=== PATIENT | female | born 1955 | race Caucasian/White ===

== ENCOUNTER → 2024-01-08 | Outpatient (CLI) | payer MEDICARE ==
[~2024-01-08] MED LIST: ASPI325EC PO; ATOR80 PO; CLOP75 PO
[2024-01-08 13:19] LABS: BASOPHILS ABSOLUTE AUTO 0.07 K/mm3 (0.00-0.23); BASOPHILS PERCENT AUTO 1 % (0-2); EOSINOPHILS ABSOLUTE AUTO 0.23 K/mm3 (0.00-0.68); EOSINOPHILS PERCENT AUTO 2 % (0-6); Hematocrit 33.7 % (33.0-51.0); Hemoglobin 11.3 g/dL (11.5-16.0); IMMATURE GRAN ABSOLUTE AUTO 0.04 K/mm3 (0.00-0.10); IMMATURE GRAN PERCENT AUTO 0 % (0-1); LYMPHOCYTES ABSOLUTE AUTO 1.29 K/mm3 (0.84-5.20); LYMPHOCYTES PERCENT AUTO 11 % (21-46); MONOCYTES ABSOLUTE AUTO 0.73 K/mm3 (0.16-1.47); MONOCYTES PERCENT AUTO 6 % (4-13); Mean Corpuscular HGB 27.4 pg (26.0-34.0); Mean Corpuscular HGB Conc 33.5 g/dL (31.5-36.5); Mean Corpuscular Volume 82 fL (80-100); Mean Platelet Volume 10.1 fL (9.1-12.4); NEUTROPHILS ABSOLUTE AUTO 9.35 K/mm3 (1.96-9.15); NEUTROPHILS PERCENT AUTO 80 % (41-73); Platelet Count 440 K/mm3 (150-400); RDW Standard Deviation 38.5 fL (35.1-46.3); Red Blood Cell Count 4.13 M/mm3 (3.80-5.20); White Blood Cell Count 11.71 K/mm3 (4.00-11.30)
[2024-01-08 14:12] LABS: Alanine Aminotransfer (ALT/SGP 18 U/L (12-78); Albumin, Blood 3.6 g/dL (3.4-5.0); Albumin/Globulin Ratio 0.9 (0.8-1.8); Alk Phos 106 U/L (50-136); Anion Gap 11 mmol/L (3-11); Aspartate Aminotrans (AST/SGOT 21 U/L (12-37); Bilirubin, Total 0.6 mg/dL (0.1-1.0); Blood Urea Nitrogen 8 mg/dL (8-24); Bun/Creatinine Ratio 11.9 (12.0-20.0); CHOL/HDL RATIO 2.8; CO2, Blood 26 mmol/L (21-32); Calcium, Blood 9.3 mg/dL (8.5-10.1); Chloride, Blood 91 mmol/L (98-108); Cholesterol 192 mg/dL (50-200); Creatinine, Blood 0.67 mg/dL (0.40-1.00); Globulin, Blood 4.2 g/dL (2.2-4.0); Glomerular Filtration Rate 94 (60-); Glucose, Blood 106 mg/dL (70-99); HDL Cholesterol 69 mg/dL (>39); LDL/HDL RATIO 1.5; Low Density Lipoprotein Chol 107 mg/dL (0-110); Potassium, Blood 4.9 mmol/L (3.5-5.5); Sodium, Blood 123 mmol/L (136-145); Total Protein, Blood 7.8 g/dL (6.4-8.2); Triglycerides 81 mg/dL (30-160); Very Low Density Lipoprot Chol 16 mg/dL (6-32)
== END ==
LOC: LAB SHORT 11:42 → LAB 11:42
PROVIDERS: Physician Assistant
DX: Z79.899 Other long term (current) drug therapy (principal)
CPT/HCPCS: 80053; 80061; 82306; 83036; 84443; 85025

== ENCOUNTER → 2024-04-02 | Outpatient (CLI) | payer MEDICARE ==
[2024-04-02 12:58] LABS: Bun/Creatinine Ratio 13.2 (12.0-20.0); Calcium, Blood 9.5 mg/dL (8.5-10.1); Creatinine, Blood 0.99 mg/dL (0.40-1.00); Potassium, Blood 4.7 mmol/L (3.5-5.5)
== END ==
LOC: LAB SHORT 10:40 → LAB 10:40
PROVIDERS: Physician Assistant
DX: E87.1 Hypo-osmolality and hyponatremia (principal)
CPT/HCPCS: 80048

== ENCOUNTER 2025-02-16 12:00 | Inpatient (IN) | payer MEDICARE, OTHER ==
[~2025-02-16] VITALS: Ht 167.6 cm; Wt 74.1 kg
[2025-02-16 12:52] LABS: BASOPHILS ABSOLUTE AUTO 0.08 K/mm3 (0.00-0.23); BASOPHILS PERCENT AUTO 0 % (0-2); EOSINOPHILS ABSOLUTE AUTO 0.65 K/mm3 (0.00-0.68); EOSINOPHILS PERCENT AUTO 4 % (0-6); Hematocrit 29.5 % (33.0-51.0); Hemoglobin 9.9 g/dL (11.5-16.0); IMMATURE GRAN ABSOLUTE AUTO 0.08 K/mm3 (0.00-0.10); IMMATURE GRAN PERCENT AUTO 0 % (0-1); LYMPHOCYTES ABSOLUTE AUTO 1.10 K/mm3 (0.84-5.20); LYMPHOCYTES PERCENT AUTO 6 % (21-46); MONOCYTES ABSOLUTE AUTO 0.88 K/mm3 (0.16-1.47); MONOCYTES PERCENT AUTO 5 % (4-13); Mean Corpuscular HGB Conc 33.6 g/dL (31.5-36.5); Mean Corpuscular Volume 78 fL (80-100); NEUTROPHILS ABSOLUTE AUTO 15.33 K/mm3 (1.96-9.15); NEUTROPHILS PERCENT AUTO 85 % (41-73); NRBC ABSOLUTE 0.00 K/mm3 (0.00-0.02); NRBC Auto 0.0 /100 WBC (0.0-0.2); Platelet Count 515 K/mm3 (150-400); RDW Coefficient Variation 15.4 % (11.7-14.2); RDW Standard Deviation 43.8 fL (35.1-46.3)
[2025-02-16 13:12] LABS: Alanine Aminotransfer (ALT/SGP 14.0 U/L (12-78); Albumin, Blood 2.8 g/dL (3.4-5.0); Albumin/Globulin Ratio 0.7 (0.8-1.8); Anion Gap 11.0 mmol/L (3-11); Aspartate Aminotrans (AST/SGOT 27.0 U/L (12-37); Bilirubin, Total 0.4 mg/dL (0.1-1.0); Blood Urea Nitrogen 10.0 mg/dL (8-24); CO2, Blood 24.0 mmol/L (21-32); Calcium, Blood 8.4 mg/dL (8.5-10.1); Chloride, Blood 92.0 mmol/L (98-108); Creatinine, Blood 0.73 mg/dL (0.40-1.00); Globulin, Blood 4.2 g/dL (2.2-4.0); Glucose, Blood 105.0 mg/dL (70-99); Potassium, Blood 4.6 mmol/L (3.5-5.5); Sodium, Blood 122.0 mmol/L (136-145); Total Protein, Blood 7.0 g/dL (6.4-8.2)
[2025-02-16 15:29] LABS: Source, Urine Clean Catch
[2025-02-16 15:33] LABS: Bilirubin, Urine Neg (Neg); Glucose Qualitative, Urine Neg (Neg); Ketones, Urine Neg (Neg); Leukocyte Esterase, Urine 3+ (Neg); Protein, Urine 2+ (Neg); Specific Gravity, Urine 1.010 (1.003-1.022); Urobilinogen, Urine NORM (Normal)
[2025-02-16 15:39] LABS: Color, Urine Pale Yellow (P-Yellow)
[2025-02-16 15:41] LABS: White Blood Cells, Urine 25-50 /hpf (0-5)
[2025-02-16] MEDS ORDERED: CEPH500 PO (15:53)
[2025-02-16] MEDS ORDERED: CefTRIAXone Sodium 1,000 MG in NS 100 ML IV ONE (16:10)
[2025-02-16] MEDS ORDERED: NS 500 ML IV SCH (17:10)
[2025-02-16] MEDS ORDERED: Albuterol 2.5 MG/3 ML VIAL INH PRN (18:05)
[2025-02-16] MEDS ORDERED: NS 1,000 ML IV SCH (18:30)
[2025-02-16 19:14] LABS: Ferritin, Serum 315.0 ng/mL (8-252); Total Iron Binding Capacity 245.0 ug/dL (250-450)
[2025-02-16] MEDS ORDERED: Lactobacil 2-S.Thermo-Bifido 1 1 Cap PO SCH (21:00)
[2025-02-16 22:37] LABS: Anion Gap 10.0 mmol/L (3-11); Blood Urea Nitrogen 7.0 mg/dL (8-24); CO2, Blood 24.0 mmol/L (21-32); Calcium, Blood 8.2 mg/dL (8.5-10.1); Chloride, Blood 95.0 mmol/L (98-108); Creatinine, Blood 0.66 mg/dL (0.40-1.00); Glucose, Blood 98.0 mg/dL (70-99); Potassium, Blood 4.2 mmol/L (3.5-5.5); Sodium, Blood 125.0 mmol/L (136-145)
[2025-02-17 03:37] VITALS: BP 97/67
--- NOTE | 2025-02-17 05:01 | NUR ---
SHIFT SUMMARY - PT ARRIVES TO UNIT AT 1025, REPORT RECEIVED FROM ALONDRA BALES IN ER. PT IS A/OX4. VERBALIZES NEEDS, COOPERATIVE WITH CARE. HX OF CVA APPROX 10 YEARS AGO. PT DISPLAYS RIGHT SIDED DEFICITS WITH UNILATERAL WEAKNESS, RIGHT SIDED FACIAL DROOP, AND CONTRACTED RIGHT HAND. SHE DENIES PAIN AT THIS TIME, BUT DOES EXHIBIT GRIMACING WHEN TURNING ONTO HER RIGHT SIDE. PERRLA. FOLLOWS COMMANDS. RESPONDS APPROPRIATELY, BUT DISPLAYS EXPRESSIVE APHASIA. SHE IS ABLE TO RESPOND APPROPRIATELY WITH MUCH EFFORT. ON CONTINUOUS CARDIAC TELEMETRY, IN A SINUS RHYTHM, VSS. ON RA, SATS ABOVE 90%. LUNG SOUNDS COARSE WITH EXPIRATORY WHEEZES. BREATHING IN SHALLOW AND UNLABORED. PT STATES SHE COMMONLY USES A WALKER AND WHEELCHAIR AT [place]. SHE REQUIRES ASSISTANCE WITH MANY ADL S, SUCH DRESSING AND BATHING. SHE IS ABLE TO EAT MEALS INDEPENDENTLY. HER RIGHT SIDE HAS BECOME INCREASINGLY MORE WEAK THAN BASELINE IN THE LAST SEVERAL DAYS. HER IS HER PRIMARY CAREGIVER. GARCIA CATHETER PLACED IN ER FOR RETENTION. URINE IS PALE YELLOW AND DRAINING TO GRAVITY. PT HAS STAGE ONE PRESSURE INJURY ON BUTTOCKS. PHOTOS IN CHART AND MD AWARE. CODE STATUS CHANGED TO DNR THIS SHIFT AFTER CONVERSATION WITH MD PER PT WISHES.
[2025-02-17 05:21] LABS: Hematocrit 30.0 % (33.0-51.0); Hemoglobin 10.0 g/dL (11.5-16.0); Mean Corpuscular HGB Conc 33.3 g/dL (31.5-36.5); Mean Corpuscular Volume 78 fL (80-100); NRBC ABSOLUTE 0.00 K/mm3 (0.00-0.02); NRBC Auto 0.0 /100 WBC (0.0-0.2); Platelet Count 486 K/mm3 (150-400); RDW Coefficient Variation 15.5 % (11.7-14.2); RDW Standard Deviation 43.9 fL (35.1-46.3)
[2025-02-17 05:45] LABS: Anion Gap 10.0 mmol/L (3-11); Blood Urea Nitrogen 7.0 mg/dL (8-24); CO2, Blood 25.0 mmol/L (21-32); Calcium, Blood 7.9 mg/dL (8.5-10.1); Chloride, Blood 94.0 mmol/L (98-108); Creatinine, Blood 0.62 mg/dL (0.40-1.00); Glucose, Blood 95.0 mg/dL (70-99); Magnesium, Blood 1.7 mg/dL (1.6-2.4); Potassium, Blood 3.7 mmol/L (3.5-5.5); Sodium, Blood 125.0 mmol/L (136-145)
[2025-02-17 07:19] VITALS: BP 121/72
--- NOTE | 2025-02-17 08:51 | NUR ---
am note this rn assumed care at 0700. vital signs stable. tele sinus rhythm/ sinus tach with a avb 80-110s. patient heart rate increases into the 100s with activity. patient is alert and oriented x3. patient has history of cva with right sided deficits. patient has a right facial droop and right side is weaker than left. patient has expressive aphasia. patient is caregiver. patient deneis pain, chest pain/pressure or shortness of breath. patient has reddness to bottom that is not blanchable and pictures in the chart. repositioning every two hours. patient has a crews catheter in place for retention and is draining with gravity, clear yellow urine. see shift assesment for further detials. plan is to complete home med rec with and mri form when arrives today. patient agrees with this plan. jn with care management in to see the patient this morning
[2025-02-17] MEDS ORDERED: Enoxaparin 40 MG/0.4 ML SYR SC SCH (09:00)
[2025-02-17] MEDS ORDERED: ASPI81CH PO (09:37)
[2025-02-17] MEDS ORDERED: LOSA50 PO (09:38)
[2025-02-17] MEDS ORDERED: AMLO10 PO (09:39)
[2025-02-17 11:17] VITALS: BP 135/70
--- NOTE | 2025-02-17 12:24 | NUR ---
update patient has worked with physical therapy, occupational therapy and speech therapy today. see their assessment for further detials
[2025-02-17] MEDS ORDERED: CefTRIAXone Sodium 1,000 MG in NS 100 ML IV SCH (16:00)
--- NOTE | 2025-02-17 16:03 | NUR ---
CASE CONFRENCE- DISCUSSED CASE WITH CARE ATTENDANT AND ALLOCATIONS CLERK. PATIENT HAS EXPRESSIVE APHASIA AND IS PENDING AN MRI. WILL CONTINUE TO FOLLOW
[2025-02-17] MEDS ORDERED: Polyethylene Glycol 3350 17 gm PO PRN (16:10)
[2025-02-17] MEDS ORDERED: Docusate Sodium/Senna 1 Tab PO PRN (16:10)
--- NOTE | 2025-02-17 16:10 | NUR ---
shift summary vitals remain stable. no acute changes. see previous notes.
--- NOTE | 2025-02-17 16:45 | NUR ---
ASSUMPTION NOTE: THIS RN TO ASSUME CARE OF PATIENT. PATIENT RESTING IN BED ASKING TO GET ON BED [place]. VITAL SIGNS STAKEN & PATIENT STABLE. PATIENT IS ALERT AND ORIENTED X4 HAS EXPRESSIVE APHASIA BUT IS ABLE TO MAKE NEEDS KNOWN WITH SIMPLE QUESTIONS. PATIENT HAS CALL LIGHT WITHIN REACH & BED IN LOWEST POSITION STATING NOTHING ELSE IS NEEDED AT THIS TIME.
[2025-02-17 16:46] VITALS: BP 127/67
--- NOTE | 2025-02-17 18:06 | NUR ---
SHIFT SUMMARY: PATIENT IS ALERT AND ORIENTED X4 & COOPERATIVE WITH HER CARE. HAS EXPRESSIVE APHASIA BUT IS ABLE TO MAKE NEEDS KNOWN. ON TELE SHOWING SINUS WITH RATE IN 80-90'S. PATIENT SATTING >92% ON ROOM AIR. PATIENT WORKED WITH PHYSICAL THERAPY AND OCCUPATIONAL THERAPY TODAY, SHE IS A LIFT PATIENT TO GET OUT OF BED DUE TO WEAKNESS & 2 PERSON TO SIT AT EDGE OF BED. PATIENT HAS HISTORY OF CVA WITH RIGHT SIDED WEAKNESS AND FACIAL DROOP. PATIENT IS ABLE TO MOVE ALL EXTREMITIES BUT VERY WEAK. GOT MRI AND HEAD CTA WITH RESULTS IN THE CHART. TO BEDSIDE TODAY AND MED REC WAS DONE. PATIENT WORKED WITH SPEECH TODAY AND MEDICATIONS ONE AT A TIME WHOLE WITH WATER AND SOFT & BITE SIZED DIET. PATIENT HAS CALL LIGHT WITHIN REACH, BED IN LOWEST POSITION & STATING NOTHING ELSE IS NEEDED AT THIS TIME.
[2025-02-17 20:26] VITALS: BP 137/99
[2025-02-18] VITALS (7 sets, daily range): BP systolic 98–127; BP diastolic 65–90
[2025-02-18 04:22] LABS: BASOPHILS ABSOLUTE AUTO 0.08 K/mm3 (0.00-0.23); BASOPHILS PERCENT AUTO 0 % (0-2); EOSINOPHILS ABSOLUTE AUTO 0.15 K/mm3 (0.00-0.68); EOSINOPHILS PERCENT AUTO 1 % (0-6); Hematocrit 31.7 % (33.0-51.0); Hemoglobin 10.4 g/dL (11.5-16.0); IMMATURE GRAN ABSOLUTE AUTO 0.13 K/mm3 (0.00-0.10); IMMATURE GRAN PERCENT AUTO 1 % (0-1); LYMPHOCYTES ABSOLUTE AUTO 0.88 K/mm3 (0.84-5.20); LYMPHOCYTES PERCENT AUTO 5 % (21-46); MONOCYTES ABSOLUTE AUTO 1.15 K/mm3 (0.16-1.47); MONOCYTES PERCENT AUTO 6 % (4-13); Mean Corpuscular HGB Conc 32.8 g/dL (31.5-36.5); Mean Corpuscular Volume 79 fL (80-100); NEUTROPHILS ABSOLUTE AUTO 17.17 K/mm3 (1.96-9.15); NEUTROPHILS PERCENT AUTO 88 % (41-73); NRBC ABSOLUTE 0.00 K/mm3 (0.00-0.02); NRBC Auto 0.0 /100 WBC (0.0-0.2); Platelet Count 493 K/mm3 (150-400); RDW Coefficient Variation 15.5 % (11.7-14.2); RDW Standard Deviation 44.1 fL (35.1-46.3)
[2025-02-18 04:41] LABS: Anion Gap 10.0 mmol/L (3-11); Blood Urea Nitrogen 6.0 mg/dL (8-24); CO2, Blood 25.0 mmol/L (21-32); Calcium, Blood 8.4 mg/dL (8.5-10.1); Chloride, Blood 92.0 mmol/L (98-108); Creatinine, Blood 0.58 mg/dL (0.40-1.00); Glucose, Blood 99.0 mg/dL (70-99); Potassium, Blood 3.7 mmol/L (3.5-5.5); Sodium, Blood 123.0 mmol/L (136-145)
--- NOTE | 2025-02-18 16:59 | NUR ---
shift summary PT A&OX3, ABLE TO MAKE NEEDS KNOWN, SLOW TO RESPOND. R SIDE WEAKNESS. SP02>90% ON RA. TELEMTRY SHOWS SINUS, HR MOSTLY 80'S. ELEVATED THIS AM, STARTED METOPROLOL PER HOME REGIMEN. DENIES PAIN. GARCIA CATHETER WITH YELLOW URINE TO GRAVITY. C/O OF CONSTIPATION. ABLE TO HAVE A SMEAR IN BEDPAN THIS AM. BOWEL CARE GIVEN PER EMAR. Q2H REPOSITIONING. WORKED W/ PT. VISITED THIS AFTERNOON. NEW IV IN L FOREARM. ABX INFUSED PER EMAR. FLUIDS INFUSING PER EMAR. CALL LIGHT IN REACH.
[2025-02-19] VITALS (7 sets, daily range): BP systolic 79–139; BP diastolic 59–696
[2025-02-19 04:02] LABS: BASOPHILS ABSOLUTE AUTO 0.09 K/mm3 (0.00-0.23); BASOPHILS PERCENT AUTO 1 % (0-2); EOSINOPHILS ABSOLUTE AUTO 0.51 K/mm3 (0.00-0.68); EOSINOPHILS PERCENT AUTO 3 % (0-6); Hematocrit 28.7 % (33.0-51.0); Hemoglobin 9.6 g/dL (11.5-16.0); IMMATURE GRAN ABSOLUTE AUTO 0.05 K/mm3 (0.00-0.10); IMMATURE GRAN PERCENT AUTO 0 % (0-1); LYMPHOCYTES ABSOLUTE AUTO 1.12 K/mm3 (0.84-5.20); LYMPHOCYTES PERCENT AUTO 6 % (21-46); MONOCYTES ABSOLUTE AUTO 1.15 K/mm3 (0.16-1.47); MONOCYTES PERCENT AUTO 7 % (4-13); Mean Corpuscular HGB Conc 33.4 g/dL (31.5-36.5); Mean Corpuscular Volume 78 fL (80-100); NEUTROPHILS ABSOLUTE AUTO 14.46 K/mm3 (1.96-9.15); NEUTROPHILS PERCENT AUTO 83 % (41-73); NRBC ABSOLUTE 0.00 K/mm3 (0.00-0.02); NRBC Auto 0.0 /100 WBC (0.0-0.2); Platelet Count 488 K/mm3 (150-400); RDW Coefficient Variation 15.5 % (11.7-14.2); RDW Standard Deviation 44.2 fL (35.1-46.3)
[2025-02-19 04:25] LABS: Anion Gap 8.0 mmol/L (3-11); Blood Urea Nitrogen 6.0 mg/dL (8-24); CO2, Blood 26.0 mmol/L (21-32); Calcium, Blood 8.4 mg/dL (8.5-10.1); Chloride, Blood 95.0 mmol/L (98-108); Creatinine, Blood 0.61 mg/dL (0.40-1.00); Glucose, Blood 87.0 mg/dL (70-99); Potassium, Blood 3.4 mmol/L (3.5-5.5); Sodium, Blood 126.0 mmol/L (136-145)
--- NOTE | 2025-02-19 06:24 | NUR ---
SHIFT SUMMARY PATIENT ALERT AND ORIENTED X4. HAD NO COMPLAINTS OF PAIN OR SHORTNESS OF BREATH. ON ROOM AIR WITH SP02 >90%. VITAL SIGNS STABLE. NO NEURO CHANGES NOTED. WILL CONTINUE TO MONITOR. CALL LIGHT WITHIN REACH.
[2025-02-19] MEDS ORDERED: NS 1,000 ML IV ONE (09:45)
[2025-02-19] MEDS ORDERED: Potassium Chloride 10 Meq Tablet SA PO ONE (11:45)
--- NOTE | 2025-02-19 17:18 | NUR ---
shift summary PT A&OX3, ABLE TO MAKE NEEDS KNOWN, SLOW TO RESPOND. NO NEURO CHANGES NOTED. SP02>90% ON RA. TELEMETRY SHOWS NSR, HR MOSTLY 90'S. BP SOFT THIS SHIFT. MD VIZCARRA W/ ORDERS FOR 1L NS BOLUS. BP RESPONDED WELL, SEE VITALS. GARCIA CATHETER DRAINING YELLOW URINE TO GRAVITY. ABLE TO HAVE BM THIS SHIFT. DENIES PAIN. REPOSITIONED Q2H. BLOOD CULTURES DRAWN. NEW IV PLACED IN R FOREARM. PT UP IN RECLINER MOST OF SHIFT. CURRENTLY SITTING UP IN BED EATING DINNER. CALL LIGHT IN REACH.
[2025-02-20] VITALS (8 sets, daily range): BP systolic 103–142; BP diastolic 61–80
--- NOTE | 2025-02-20 05:42 | NUR ---
SHIFT SUMMARY: PT IS AOX3-4, WITH EXPRESSIVE APHASIA. PT DOES HAVE R SIDED WEAKNESS MORE IN THE LOWER EXTREMITIES. PT IS 2P MAX ASSIST TO STAND PIVOT FROM BED TO CHAIR/BSC AND VICE VERSA. TELEMETRY MONITORING IN PLACE, TACHY 100-110s AT REST, HR INCREASED TO 150 WHILE AMBULATING. CALL LIGHT IS WITHIN REACH. BED ALARM IS ON. BED IS LOW AND LOCKED.
[2025-02-20] MEDS ORDERED: Cosyntropin 0.25 MG / ML 1ML Vial IM ONE (08:50)
[2025-02-20 09:23] LABS: BASOPHILS ABSOLUTE AUTO 0.10 K/mm3 (0.00-0.23); BASOPHILS PERCENT AUTO 1 % (0-2); EOSINOPHILS ABSOLUTE AUTO 0.76 K/mm3 (0.00-0.68); EOSINOPHILS PERCENT AUTO 4 % (0-6); Hematocrit 30.5 % (33.0-51.0); Hemoglobin 9.9 g/dL (11.5-16.0); IMMATURE GRAN ABSOLUTE AUTO 0.06 K/mm3 (0.00-0.10); IMMATURE GRAN PERCENT AUTO 0 % (0-1); LYMPHOCYTES ABSOLUTE AUTO 1.16 K/mm3 (0.84-5.20); LYMPHOCYTES PERCENT AUTO 7 % (21-46); MONOCYTES ABSOLUTE AUTO 0.86 K/mm3 (0.16-1.47); MONOCYTES PERCENT AUTO 5 % (4-13); Mean Corpuscular HGB Conc 32.5 g/dL (31.5-36.5); Mean Corpuscular Volume 80 fL (80-100); NEUTROPHILS ABSOLUTE AUTO 14.25 K/mm3 (1.96-9.15); NEUTROPHILS PERCENT AUTO 83 % (41-73); NRBC ABSOLUTE 0.00 K/mm3 (0.00-0.02); NRBC Auto 0.0 /100 WBC (0.0-0.2); Platelet Count 477 K/mm3 (150-400); RDW Coefficient Variation 15.8 % (11.7-14.2); RDW Standard Deviation 46.1 fL (35.1-46.3)
[2025-02-20] MEDS ORDERED: Cosyntropin 0.25 MG / ML 1ML Vial IV ONE (09:30)
[2025-02-20 09:40] LABS: Anion Gap 11.0 mmol/L (3-11); Blood Urea Nitrogen 5.0 mg/dL (8-24); CO2, Blood 23.0 mmol/L (21-32); Calcium, Blood 8.0 mg/dL (8.5-10.1); Chloride, Blood 98.0 mmol/L (98-108); Creatinine, Blood 0.58 mg/dL (0.40-1.00); Glucose, Blood 117.0 mg/dL (70-99); Potassium, Blood 4.0 mmol/L (3.5-5.5); Sodium, Blood 128.0 mmol/L (136-145)
[2025-02-20] MEDS ORDERED: NS 250 ML IV PRN (16:15)
--- NOTE | 2025-02-20 18:03 | NUR ---
TRANSFER - LATE NOTE: PT ARRIVED TO MEDICAL UNIT FROM PCU AT APPROX 1625. PT EXPERIENCING RIGHT SIDED WEAKNESS AND SEVERE EXPRESSIVE APHASIA. DENIES PAIN. PT NEEDED ASSISTANCE EATING DINNER. IV ABX INFUSED W/O COMPLICATIONS. CALL LIGHT IN REACH. BED IN LOWEST POSITION.
--- NOTE | 2025-02-20 23:30 | NUR ---
MORTGAGE FIELD INSPECTOR PROVIDER AND RESIDENT AT BEDSIDE TO ASSESS PATIENT D/T SUSTAINED TACHYCARDIA IN THE 130-150S. NEW ORDERS FOR STAT LABS AND 500ML BOLUS PLACED.
[2025-02-21] VITALS (7 sets, daily range): BP systolic 89–132; BP diastolic 57–84
[2025-02-21 00:09] LABS: Alanine Aminotransfer (ALT/SGP 12.0 U/L (12-78); Albumin, Blood 2.6 g/dL (3.4-5.0); Albumin/Globulin Ratio 0.6 (0.8-1.8); Anion Gap 11.0 mmol/L (3-11); Aspartate Aminotrans (AST/SGOT 20.0 U/L (12-37); Bilirubin, Total 0.4 mg/dL (0.1-1.0); Blood Urea Nitrogen 7.0 mg/dL (8-24); CO2, Blood 24.0 mmol/L (21-32); Calcium, Blood 8.5 mg/dL (8.5-10.1); Chloride, Blood 97.0 mmol/L (98-108); Creatinine, Blood 0.58 mg/dL (0.40-1.00); Globulin, Blood 4.1 g/dL (2.2-4.0); Glucose, Blood 94.0 mg/dL (70-99); Magnesium, Blood 1.5 mg/dL (1.6-2.4); Phosphorus, Blood 3.5 mg/dL (2.5-4.9); Potassium, Blood 3.9 mmol/L (3.5-5.5); Sodium, Blood 128.0 mmol/L (136-145); Total Protein, Blood 6.7 g/dL (6.4-8.2)
[2025-02-21 01:17] LABS: BASOPHILS ABSOLUTE AUTO 0.07 K/mm3 (0.00-0.23); BASOPHILS PERCENT AUTO 0 % (0-2); EOSINOPHILS ABSOLUTE AUTO 0.10 K/mm3 (0.00-0.68); EOSINOPHILS PERCENT AUTO 1 % (0-6); Hematocrit 28.9 % (33.0-51.0); Hemoglobin 9.7 g/dL (11.5-16.0); IMMATURE GRAN ABSOLUTE AUTO 0.09 K/mm3 (0.00-0.10); IMMATURE GRAN PERCENT AUTO 0 % (0-1); LYMPHOCYTES ABSOLUTE AUTO 1.28 K/mm3 (0.84-5.20); LYMPHOCYTES PERCENT AUTO 6 % (21-46); MONOCYTES ABSOLUTE AUTO 0.99 K/mm3 (0.16-1.47); MONOCYTES PERCENT AUTO 5 % (4-13); Mean Corpuscular HGB Conc 33.6 g/dL (31.5-36.5); Mean Corpuscular Volume 78 fL (80-100); NEUTROPHILS ABSOLUTE AUTO 17.80 K/mm3 (1.96-9.15); NEUTROPHILS PERCENT AUTO 88 % (41-73); NRBC ABSOLUTE 0.00 K/mm3 (0.00-0.02); NRBC Auto 0.0 /100 WBC (0.0-0.2); Platelet Count 540 K/mm3 (150-400); RDW Coefficient Variation 15.6 % (11.7-14.2); RDW Standard Deviation 43.8 fL (35.1-46.3)
[2025-02-21 01:30] LABS: pH Blood Venous 7.39 (7.34-7.37)
[2025-02-21] MEDS ORDERED: Magnesium Sulf 2 GM/Water 50ML 50 ML IV ONE (01:45)
[2025-02-21 06:19] LABS: BASOPHILS ABSOLUTE AUTO 0.11 K/mm3 (0.00-0.23); BASOPHILS PERCENT AUTO 1 % (0-2); EOSINOPHILS ABSOLUTE AUTO 0.27 K/mm3 (0.00-0.68); EOSINOPHILS PERCENT AUTO 1 % (0-6); Hematocrit 29.3 % (33.0-51.0); Hemoglobin 9.8 g/dL (11.5-16.0); IMMATURE GRAN ABSOLUTE AUTO 0.10 K/mm3 (0.00-0.10); IMMATURE GRAN PERCENT AUTO 1 % (0-1); LYMPHOCYTES ABSOLUTE AUTO 1.10 K/mm3 (0.84-5.20); LYMPHOCYTES PERCENT AUTO 5 % (21-46); MONOCYTES ABSOLUTE AUTO 1.07 K/mm3 (0.16-1.47); MONOCYTES PERCENT AUTO 5 % (4-13); Mean Corpuscular HGB Conc 33.4 g/dL (31.5-36.5); Mean Corpuscular Volume 78 fL (80-100); NEUTROPHILS ABSOLUTE AUTO 18.29 K/mm3 (1.96-9.15); NEUTROPHILS PERCENT AUTO 87 % (41-73); NRBC ABSOLUTE 0.00 K/mm3 (0.00-0.02); NRBC Auto 0.0 /100 WBC (0.0-0.2); Platelet Count 513 K/mm3 (150-400); RDW Coefficient Variation 15.6 % (11.7-14.2); RDW Standard Deviation 44.9 fL (35.1-46.3)
--- NOTE | 2025-02-21 06:39 | NUR ---
SUMMARY RECVD AWAKE WITH NOTICEABLE EXPRESSIVE APHASIA AND R SIDE WEAKNESS. A&OX3 ROUGHLY ITS HARD TO ASSESS WHAT PT EXPRESSES. STABLE AT RA BUT TELE CONSISTENTLY SHOWS SINUS TACH AND BP STARTING TO DROP SLOWLY AT SHIFT START & TEMPT GRADUALLY INCREASES BUT STILL WITHIN NORMAL RANGE. UPDATED RELATIVE KARON VIA PHONE CALL AND UNDERSTANDS HER CONDITION. NOTIFIED SOCIAL WORK FACULT[employer] AND WILL REVIEW RECORD 1ST. FF UP DONE AROUND 11PM AND SAID IT HAS BEEN RELAYED TO DR SUNSHINE AND WILL CALL HIM TO FF UP. NO CHANGES ON VS, YET SINUS TACH WORSENING AND BP SLOWLY DROPPING. 12L EKG DONE AND RE-RELAYED CURRENT VS AFTER. STARTED ON O2 AT MINIMUM 0.5 TO 1LPM TO MAINTAIN SATS ABOVE 94%. BOLUS OF LR DONE PER EMAR, BLOOD WORKS DONE. CT REVEALED PLEURAL EFF RULING OUT NO PE. NO CHANGES ON HR AND NO MEDS CAN BE GIVEN DUE TO RISK OF DROPPING BP. WILL TRY TO INC BP IN AM PRIOR TO HR MGT PER DOCTOR. VS IMPROVED AT 4AM AND DISCONTINUED O2 SHE TOLERATES RA THIS TIME. FINALLY ABLE TO CATCH GOOD SLEEP AROUND 4-5AM AFTER BEING UP THE WHOLE NIGHT. LEFT UNDISTURBED AT AM ROUNDS FOR OPTIMAL REST. HR CAN GO BELOW 100 DURING SLEEP PER TELE MON.
[2025-02-21 06:48] LABS: Anion Gap 11.0 mmol/L (3-11); Blood Urea Nitrogen 6.0 mg/dL (8-24); CO2, Blood 25.0 mmol/L (21-32); Calcium, Blood 8.9 mg/dL (8.5-10.1); Chloride, Blood 96.0 mmol/L (98-108); Creatinine, Blood 0.58 mg/dL (0.40-1.00); Glucose, Blood 99.0 mg/dL (70-99); Potassium, Blood 3.6 mmol/L (3.5-5.5); Sodium, Blood 128.0 mmol/L (136-145)
--- NOTE | 2025-02-21 18:14 | NUR ---
PALLIATIVE CARE VISIT: MET WITH PT IN THE ROOM. PT ABLE TO HAVE MEANINGFUL DISCUSSION. DISCUSSED REASON FOR CONSULT TO COMPLETE A POLST/AD. PT STATES SHE ALREADY HAS A POLST AT HOME THAT STATES DNR. PT DECLINES AD STATING HER SPOUSE KNOWS WHAT SHE WANTS AND WILL BE HER HEALTHCARE INSTRUCTIONAL SERVICES SPECIALIST. PT DENIES NEEDS FOR SYMPTOM MANAGEMENT. STATES SHE IS FEELING MUCH BETTER AND BACK TO BASELINE.
--- NOTE | 2025-02-21 19:22 | NUR ---
END OF SHIFT SUMMARY: A&Ox4. PLEASANT AND COOPERATIVE WITH CARE. CALLS APPROPRIATELY AND IS ABLE TO ADVOCATE NEEDS EFFECTIVELY. INCONTINENT OF BOWEL AND BLADDER; LBM TODAY. LOG ROLL FOR ATTENDS AND BED CHANGE. DOES NOT AMBULATE. MEDS WHOLE, NLD-AA-C-TIME, c FLUIDS. NO C/O PAIN OR DISCOMFORT. TELE CONTINUES TO BE SINUS TO SINUS TACH WITHOUT TELE EVENTS. HOWEVER, TROPONINS ELEVATED TO 496 AND THEN 565. PROVIDER NOTIFIED. PATIENT ASYMPTOMATIC. LABS TO BE CHECKED AGAIN IN AM. ACCEPTED TO [facility] FOR REHAB. BED IN LOWEST POSITION, CALL LIGHT WITHIN REACH, ALL NEEDS MET. REPORT TO ONCOMING NURSE.
[2025-02-22 00:56] VITALS: BP 152/79
[2025-02-22 04:17] VITALS: BP 129/74
[2025-02-22 05:03] LABS: BASOPHILS ABSOLUTE AUTO 0.11 K/mm3 (0.00-0.23); BASOPHILS PERCENT AUTO 1 % (0-2); EOSINOPHILS ABSOLUTE AUTO 0.65 K/mm3 (0.00-0.68); EOSINOPHILS PERCENT AUTO 3 % (0-6); Hematocrit 28.0 % (33.0-51.0); Hemoglobin 9.3 g/dL (11.5-16.0); IMMATURE GRAN ABSOLUTE AUTO 0.08 K/mm3 (0.00-0.10); IMMATURE GRAN PERCENT AUTO 0 % (0-1); LYMPHOCYTES ABSOLUTE AUTO 1.08 K/mm3 (0.84-5.20); LYMPHOCYTES PERCENT AUTO 5 % (21-46); MONOCYTES ABSOLUTE AUTO 1.00 K/mm3 (0.16-1.47); MONOCYTES PERCENT AUTO 5 % (4-13); Mean Corpuscular HGB Conc 33.2 g/dL (31.5-36.5); Mean Corpuscular Volume 78 fL (80-100); NEUTROPHILS ABSOLUTE AUTO 17.31 K/mm3 (1.96-9.15); NEUTROPHILS PERCENT AUTO 86 % (41-73); NRBC ABSOLUTE 0.00 K/mm3 (0.00-0.02); NRBC Auto 0.0 /100 WBC (0.0-0.2); Platelet Count 503 K/mm3 (150-400); RDW Coefficient Variation 15.5 % (11.7-14.2); RDW Standard Deviation 44.1 fL (35.1-46.3)
[2025-02-22 05:28] LABS: Anion Gap 9.0 mmol/L (3-11); Blood Urea Nitrogen 6.0 mg/dL (8-24); CO2, Blood 26.0 mmol/L (21-32); Calcium, Blood 8.2 mg/dL (8.5-10.1); Chloride, Blood 98.0 mmol/L (98-108); Creatinine, Blood 0.6 mg/dL (0.40-1.00); Glucose, Blood 93.0 mg/dL (70-99); Potassium, Blood 3.5 mmol/L (3.5-5.5); Sodium, Blood 129.0 mmol/L (136-145)
--- NOTE | 2025-02-22 06:38 | NUR ---
SUMMARY VSS ON RA, PLEASANTLY COOPERATIVE , STILL HAS EXPRESSIVE APHASIA AND R SIDE WEAK. BEDBOUND AND SAFE ON BED. TROP HIGH AND DOCTORS AWARE BUT ASYMPTOMATIC AND DENIES ANY DISTRESS / DISCOMFORT EVERYTIME ASKED. ONLY HAD SIPS OF WATER AT NIGHT BUT DIAPER SOAKS HEAVILY WHEN CHANGED TWICE AND EVEN LEAKED OUT ON 1 EPISODE. STILL AWAKE WHOLE NIGHT I NEVER SEEN HER CLOSED HER EYES ON ALL MY VISITS.
[2025-02-22 07:35] VITALS: BP 92/72
--- NOTE | 2025-02-22 08:20 | NUR ---
ASSUMPTION OF CARE: THIS RN ASSUMED CARE OF PATIENT FOR SECOND DAY. AWAKE DURING SHIFT CHANGE REPORT; NIGHT NURSE REPORTS SHE HAS NOT SLEPT MUCH THE LAST TWO NIGHTS. LYING IN BED c HOB ELEVATED. BREATHING EVEN AND UNLABORED c ROOM AIR. MOST RECENT TELE STRIP FROM LAST NIGHT SHOWS SIN c BBB. AWAITING MORNING STRIP FOR REVIEW. BED IN LOWEST POSITION. CALL LIGHT WITHIN REACH. ACUTE NEEDS MET.
[2025-02-22] MEDS ORDERED: LOSA25 PO (10:59)
[2025-02-22] MEDS ORDERED: AMOCLA875 PO (11:00)
[2025-02-22] MEDS ORDERED: FURO20 PO (11:00)
[2025-02-22] MEDS ORDERED: SODCHL1 PO (11:09)
[2025-02-22] MEDS ORDERED: CLOP75 PO (11:09)
[2025-02-22] MEDS ORDERED: VISBIOME 112.51 EACH PO (11:10)
[2025-02-22 12:09] VITALS: BP 98/62
--- NOTE | 2025-02-22 13:56 | NUR ---
DISCHARGE SUMMARY: A&Ox4. PLEASANT AND COOPERATIVE WITH CARE. CALLS APPROPRIATELY AND IS ABLE TO ADVOCATE NEEDS EFFECTIVELY. 2PA c GB TO WC. INCONTINENT OF BOWEL AND BLADDER; LBM TODAY. MEDS WHOLE c FLUIDS, VXX-JP-Y-TIME. TELE SINUS TACH c PVCs @ 109. NO C/O PAIN OR DISCOMFORT. ACCEPTED TO [facility] SN[facility]. DISCHARGE PLAN AND MEDICATION LIST FAXED TO [facility]. ALL QUESTIONS ANSWERED TO THIS NURSE'S ABILITY AND PATIENT VOICED UNDERSTANDING OF DISCHARGE PLAN. IV REMOVED AND PRESSURE DRESSING PLACED. LEFT FLOOR WITH ALL BELONGINGS AND DISCHARGE PACKET, ESCORTED BY [facility] TRANSPORT[facility]. ATTEMPTED TO CALL REPORT TO [facility] AND WAS PUT THROUGH [place] ON SNF SIDE. VM LEFT FOR RETURN CALL FOR REPORT.
== END 2025-02-22 13:55 | DRG 64 ==
LOC: ER 12:00 → MEDS 17:59 → PCU 17:59 → MEDS 02-20 16:00
PROVIDERS: Family Medicine; Internal Medicine; Nurse Practitioner Acute Care; Student in an Organized Health Care Education/Training Program; ADMIT Student in an Organized Health Care Education/Training Program
PROC: 0T9B70Z Drainage of Bladder with Drainage Device, Via Natural or Artificial Opening (ICD-10-PCS; principal; 2025-02-17)
PROC: 3E03329 Introduction of Other Anti-infective into Peripheral Vein, Percutaneous Approach (ICD-10-PCS; 2025-02-17)
DX: I63.9 Cerebral infarction, unspecified (principal); A41.9 Sepsis, unspecified organism; I21.A1 Myocardial infarction type 2; J96.01 Acute respiratory failure with hypoxia; I69.351 Hemiplegia and hemiparesis following cerebral infarction affecting right dominant side; I50.30 Unspecified diastolic (congestive) heart failure; E22.2 Syndrome of inappropriate secretion of antidiuretic hormone; N30.00 Acute cystitis without hematuria; R47.01 Aphasia; Z66 Do not resuscitate; R29.810 Facial weakness; D50.9 Iron deficiency anemia, unspecified; I95.9 Hypotension, unspecified; I11.0 Hypertensive heart disease with heart failure; F17.210 Nicotine dependence, cigarettes, uncomplicated; Z96.0 Presence of urogenital implants; Z96.643 Presence of artificial hip joint, bilateral; R29.6 Repeated falls; D75.839 Thrombocytosis, unspecified; E87.8 Other disorders of electrolyte and fluid balance, not elsewhere classified; Z79.02 Long term (current) use of antithrombotics/antiplatelets; Z79.82 Long term (current) use of aspirin; Z79.899 Other long term (current) drug therapy
CPT/HCPCS: 36415; 51702; 70450; 70496; 70498; 70551; 71045; 71260; 80048; 80053; 80400; 81001; 82533; 82728; 82803; 83540; 83550; 83605; 83735; 83880; 83930; 83935; 84100; 84145; 84300; 84443; 84484; 85025; 85027; 85379; 87077; 87086; 87186; 92610; 93005; 93010; 93306; 93880; 94664; 94760; 94762; 96365-59; 97110; 97112; 97162; 97166; 97530; 97535; 99285-25; A9270; J0696; J0834; J1650; J3475; J7030; J7050; J7120; Q9967

== ENCOUNTER 2025-02-27 16:43 | Emergency (ER) | payer MEDICARE, OTHER ==
[~2025-02-27] VITALS: Ht 170.2 cm; Wt 63.5 kg
[~2025-02-27 16:43] MED LIST changes: +AMLO10 PO; +AMOCLA875 PO; +ASPI81CH PO; +CEPH500 PO; +FURO20 PO; +LOSA25 PO; +LOSA50 PO; +SODCHL1 PO; +VISBIOME 112.51 EACH PO
[2025-02-27 17:33] LABS: BASOPHILS ABSOLUTE AUTO 0.11 K/mm3 (0.00-0.23); BASOPHILS PERCENT AUTO 1 % (0-2); EOSINOPHILS ABSOLUTE AUTO 0.42 K/mm3 (0.00-0.68); EOSINOPHILS PERCENT AUTO 2 % (0-6); Hematocrit 28.1 % (33.0-51.0); Hemoglobin 9.1 g/dL (11.5-16.0); IMMATURE GRAN ABSOLUTE AUTO 0.05 K/mm3 (0.00-0.10); IMMATURE GRAN PERCENT AUTO 0 % (0-1); LYMPHOCYTES ABSOLUTE AUTO 1.17 K/mm3 (0.84-5.20); LYMPHOCYTES PERCENT AUTO 6 % (21-46); MONOCYTES ABSOLUTE AUTO 1.01 K/mm3 (0.16-1.47); MONOCYTES PERCENT AUTO 5 % (4-13); Mean Corpuscular HGB Conc 32.4 g/dL (31.5-36.5); Mean Corpuscular Volume 80 fL (80-100); NEUTROPHILS ABSOLUTE AUTO 15.81 K/mm3 (1.96-9.15); NEUTROPHILS PERCENT AUTO 85 % (41-73); NRBC ABSOLUTE 0.00 K/mm3 (0.00-0.02); NRBC Auto 0.0 /100 WBC (0.0-0.2); Platelet Count 541 K/mm3 (150-400); RDW Coefficient Variation 15.5 % (11.7-14.2); RDW Standard Deviation 44.9 fL (35.1-46.3)
[2025-02-27 17:55] LABS: Alanine Aminotransfer (ALT/SGP 11.0 U/L (12-78); Albumin, Blood 2.6 g/dL (3.4-5.0); Albumin/Globulin Ratio 0.7 (0.8-1.8); Anion Gap 9.0 mmol/L (3-11); Aspartate Aminotrans (AST/SGOT 20.0 U/L (12-37); Bilirubin, Total 0.6 mg/dL (0.1-1.0); Blood Urea Nitrogen 9.0 mg/dL (8-24); CO2, Blood 28.0 mmol/L (21-32); Calcium, Blood 8.4 mg/dL (8.5-10.1); Chloride, Blood 97.0 mmol/L (98-108); Creatinine, Blood 0.73 mg/dL (0.40-1.00); Globulin, Blood 3.8 g/dL (2.2-4.0); Glucose, Blood 93.0 mg/dL (70-99); Magnesium, Blood 1.7 mg/dL (1.6-2.4); Potassium, Blood 3.9 mmol/L (3.5-5.5); Sodium, Blood 130.0 mmol/L (136-145); Total Protein, Blood 6.4 g/dL (6.4-8.2)
[2025-02-27 22:00] VITALS: BP 107/77
== END 2025-02-27 22:16 | disposition home or self-care (01) ==
LOC: ER 16:43
PROVIDERS: Emergency Medicine
DX: R10.32 Left lower quadrant pain (principal); R93.89 Abnormal findings on diagnostic imaging of other specified body structures; F17.200 Nicotine dependence, unspecified, uncomplicated; Z96.643 Presence of artificial hip joint, bilateral; Z91.048 Other nonmedicinal substance allergy status; Z91.040 Latex allergy status; Z79.02 Long term (current) use of antithrombotics/antiplatelets; Z79.82 Long term (current) use of aspirin; Z79.899 Other long term (current) drug therapy
CPT/HCPCS: 74177; 80053; 83605; 83690; 83735; 85025; Q9967